=== PATIENT | male | born 1950 | race Caucasian/White ===

== ENCOUNTER 2019-06-28 13:21 | Inpatient (IN) | payer MEDICARE ==
[2019-06-28] MEDS ORDERED: SODIUM CHLORIDE 0.9% 1,000 ML IV STA ×2 (13:37)
[2019-06-28 13:50] LABS: ALT 38 U/L (4-49); AST 37 U/L (17-59); African American GFR (CKD) >90 (>60 ml/min/1.73 sqM); Albumin 4.2 g/dL (3.5-5.0); Alkaline Phosphatase 38 U/L (38-126); Anion Gap 13 mmol/L; Blood Urea Nitrogen 12 mg/dL (9-20); Calcium 9.6 mg/dL (8.4-10.2); Carbon Dioxide 22 mmol/L (22-30); Chloride 105 mmol/L (98-107); Glucose 192 mg/dL (74-99); Non-African American GFR(CKD) >90 (>60 ml/min/1.73 sqM); Potassium 3.6 mmol/L (3.5-5.1); Sodium 140 mmol/L (137-145); Total Bilirubin 1.2 mg/dL (0.2-1.3); Total Protein 7.4 g/dL (6.3-8.2)
[2019-06-28 13:53] LABS: Basophils # (A) 0.1 k/uL (0-0.2); Basophils % (A) 0 %; Eosinophils # (A) 0.1 k/uL (0-0.7); Eosinophils % (A) 0 %; HCT 43.3 % (39.0-53.0); HGB 13.5 gm/dL (13.0-17.5); Hypochromasia Slight; Lymphocytes # (A) 1.5 k/uL (1.0-4.8); Lymphocytes % (A) 13 %; MCHC 31.1 g/dL (31.0-37.0); MCV 77.2 fL (80.0-100.0); Mean Platelet Volume 8.1; Monocytes # (A) 0.4 k/uL (0-1.0); Monocytes % (A) 3 %; Neutrophils # (A) 9.3 k/uL (1.3-7.7); Neutrophils % (A) 82 %; Platelet Count 143 k/uL (150-450); Poikilocytosis Slight; RBC 5.61 m/uL (4.30-5.90); RDW 15.3 % (11.5-15.5); WBC 11.3 k/uL (3.8-10.6)
[2019-06-28] MEDS ORDERED: MECLIZINE 25 MG TAB PO PRN (13:58)
[2019-06-28 13:59] LABS: INR 1.4 (<1.2); Partial Thromboplastin Time 21.9 sec (22.0-30.0); Prothrombin Time 14.1 sec (9.0-12.0)
[2019-06-28] MEDS: MECLIZINE 12.5 MG TAB PO STA ×2 (14:03→14:04)
[2019-06-28] MEDS ORDERED: KETOROLAC 60 MG/2 ML VIAL IVP STA (14:04)
[2019-06-28] MEDS ORDERED: ONDANSETRON 4 MG/2 ML VIAL IVP STA (14:07)
[2019-06-28 14:08] LABS: Magnesium <0.4 mg/dL (1.6-2.3)
--- NOTE | 2019-06-28 14:12 | XR ---
EXAMINATION TYPE: XR chest 2V DATE OF EXAM: 06/28/2019 HISTORY: Chest Pain. REFERENCE: Previous study dated 08/18/2010. FINDINGS: There has been a previous ACDF of the lumbar cervical spine. Lungs remain clear. Pleural sp aces are clear. Heart is not enlarged. IMPRESSION: NO ACTIVE INTRATHORACIC DISEASE.
[2019-06-28] MEDS: MAGNESIUM SULFATE-D5W PMX 1 GM in DEXTROSE/WATER 1 100ML.BAG IVPB SCH ×4 (14:38→20:16)
[2019-06-28] MEDS ORDERED: METOCLOPRAMIDE 5 MG/ML 2 ML VIAL IVP STA (15:17)
--- NOTE | 2019-06-28 15:19 | ED ---
Chest Pain HPI - General Chief Complaint: Chest Pain Stated Complaint: Chest pain Time Seen by Provider: 06/28/19 13:21 Source: patient, EMS, RN notes reviewed Mode of arrival: EMS Limitations: no limitations - History of Present Illness Initial Comments: This is a 69-year-old male presents after a fall he was going to his garage when he felt lightheaded dizzy and fell he thinks he was out for a short period of time Cand[place] 20 minutes. He got up he complains some right-sided chest pain he's been dizzy since this occurred. No palpitations however no cough or shortness of breath. He is running by EMS. Of note he does have a history of Lyme disease MD Complaint: chest pain, other - Related Data Home Medications Medication Instructions Recorded Confirmed Aspirin [Adult Low Dose Aspirin EC] 81 mg PO DAILY 06/28/19 06/28/19 Cholecalciferol [Vitamin D3 (25 5,000 unit PO DAILY 06/28/19 06/28/19 Mcg = 1000 Iu)] Cyanocobalamin (Vitamin B-12) 2,500 mcg PO DAILY 06/28/19 06/28/19 [Vitamin B-12] Krill Oil 1,000 mg PO DAILY 06/28/19 06/28/19 Lisinopril [Zestril] 10 mg PO DAILY@1200 06/28/19 06/28/19 Magnesium Oxide [Garcia] 500 mg PO DAILY 06/28/19 06/28/19 Metoprolol Tartrate [Lopressor] 25 mg PO HS 06/28/19 06/28/19 Metoprolol Tartrate [Lopressor] 50 mg PO DAILY 06/28/19 06/28/19 Omeprazole/Sodium Bicarbonate 1 cap PO DAILY 06/28/19 06/28/19 [Zegerid 20 mg Capsule] Valerian Root 530mg 1,060 mg PO HS 06/28/19 06/28/19 metFORMIN HCL [metFORMIN HCL ER] 750 mg PO BID 06/28/19 06/28/19 traMADol HCL 50 mg PO QID PRN 06/28/19 06/28/19 Allergies Allergy/AdvReac Type Severity Reaction Status Date / Time No Known Allergies Allergy Verified 06/28/19 13:53 Review of Systems ROS Statement: Those systems with pertinent positive or pertinent negative responses have been documented in the HPI. ROS Other: All systems not noted in ROS Statement are negative. EKG Findings - EKG Results: EKG: interpreted by KENDRICKD, sinus rhythm (Sinus rhythm rate is 78. Interval 162 QRS 82 QT since QTC 400/456 nonspecific T-wave configuration) Past Medical History Past Medical History: Diabetes Mellitus, Hypertension, Myocardial Infarction ([place]), Osteoarthritis (OA) History of Any Multi-Drug Resistant Organisms: None Reported Past Surgical History: Orthopedic Surgery Additional Past Surgical History / Comment(s): 1 stent Past Psychological History: No Psychological Hx Reported Smoking Status: Current every day smoker Past Alcohol Use History: None Reported Past Drug Use History: None Reported General Exam - General Exam Comments Initial Comments: This is a well-developed asthenic appearing male who is awake alert oriented 3 Limitations: no limitations General appearance: alert, in no apparent distress Head exam: Present: atraumatic, normocephalic, normal inspection Eye exam: Present: normal appearance, PERRL, EOMI. Absent: scleral icterus, conjunctival injection, periorbital swelling ENT exam: Present: mucous membranes dry Neck exam: Present: normal inspection, full ROM, other. Absent: tenderness, meningismus, lymphadenopathy Respiratory exam: Present: normal lung sounds bilaterally, chest wall tenderness (No stridor JVD or bruits producible tenderness palpation along the right chest wall no step-off or crepitation however.). Absent: respiratory distress, wheezes, rales, rhonchi, stridor Cardiovascular Exam: Present: regular rate, normal rhythm, normal heart sounds. Absent: systolic murmur, diastolic murmur, rubs, gallop, clicks GI/Abdominal exam: Present: soft, normal bowel sounds. Absent: distended, tenderness, guarding, rebound, rigid Extremities exam: Present: normal inspection, full ROM, normal capillary refill. Absent: tenderness, pedal edema, joint swelling, calf tenderness Back exam: Present: normal inspection Neurological exam: Present: alert, oriented X3, CN II-XII intact Psychiatric exam: Present: normal affect, normal mood Skin exam: Present: warm, dry, intact, normal color. Absent: rash Course Vital Signs 06/28/19 06/28/19 06/28/19 13:23 13:31 14:06 Temperature 97 F L Pulse Rate 75 82 62 Respiratory 18 18 18 Rate Blood Pressure 110/70 99/83 99/79 O2 Sat by Pulse 96 97 98 Oximetry - Reevaluation(s) Reevaluation #1: 06/28/19 15:22 Patient did complain more chest pain repeat EKG was done rate was 65 178 QRS duration 88 QT since QTC 400/416 nonspecific T-wave configuration artifact was present. Reevaluation #2: 06/28/19 15:26 ALLERGIES the patient he still has recurrent chest pain still appears to be musculoskeletal he is getting IV magnesium right now for supplementation due to the presentation he will be admitted family is concerned that the patient's history of Lyme disease has something do with a events of today there are apparently family members a do not have lines the sinuses patient and her concern with the symptoms. Disposition Clinical Impression: Syncope and collapse, Chest pain, Hypomagnesemia syndrome Disposition: ADMITTED IP TO THIS [facility] Condition: Fair Referrals: Lane Gonzalez MD [Primary Care Provider] - 1-2 days
[2019-06-28] MEDS ORDERED: NALOXONE 0.4 MG/ML 1 ML VIAL IV PRN (15:27)
[2019-06-28] MEDS ORDERED: ACETAMINOPHEN TAB 325 MG TAB PO PRN (15:27)
[2019-06-28] MEDS: ONDANSETRON 4 MG/2 ML VIAL IVP PRN ×2 (16:22→23:28)
--- NOTE | 2019-06-28 17:10 | CT ---
EXAMINATION TYPE: CT angio chest DATE OF EXAM: 06/28/2019 COMPARISON: Radiograph same date HISTORY: 69-year-old male Positive D-dimer. Pt hx HTN, IA TECHNIQUE: Contiguous axial scanning of the chest performed with IV Contrast, patient injected with 1 00 mL of Isovue 370. Coronal and sagittal MIP reconstructions performed. CT DLP: 502.2 mGycm Automated exposure control for dose reduction was used. FINDINGS: Heart normal size without pericardial effusion. No flattening of the interventricular septum though t here is small amount of reflux into the hepatic veins. Three-vessel coronary artery calcifications ar e present. Ectatic upper descending thoracic aorta at 3.0 cm. Mild atherosclerotic arch calcifications with the metatarsals branching anatomy. No thoracic lymphadenopathy by CT size criteria. Satisfactory opacification of the pulmonary arterial system evidence for pulmonary embolus. Possible 7 mm right infrahilar pulmonary nodule versus subtle endobronchial lesion, or transaxial danielle ge 76 and coronal image 93. Mild diffuse bronchial wall thickening and mild centrilobular emphysema. Some prominent dependent ate lectasis is noted bilaterally. No pleural effusion. Visualized upper abdomen shows multiple segmental fusiform aneurysm infrarenal abdominal aorta measur ing up to at least 4.7 cm inferiorly and 3.2 cm along the midsegment. Retroaortic left renal vein. Nu merous bilateral renal calculi are present measuring up to 9 mm on the left and 1.1 cm on the right. Hypodense lesion, largest measuring 4.1 cm, likely cysts. Cholecystectomy clips. Bones: ACDF hardware. Multilevel moderate degenerative disc disease throughout the thoracic spine. IMPRESSION: 1. NO EVIDENCE FOR PULMONARY EMBOLUS. 2. COPD WITH MILD EMPHYSEMA. 3. CAD. 4. POSSIBLE 7 MM RIGHT INFRAHILAR PULMONARY NODULE VERSUS SUBTLE ENDOBRONCHIAL LESION. RECOMMEND PULM ONARY MEDICINE REFERRAL FOR FURTHER MANAGEMENT, POSSIBLE DIRECT VISUALIZATION. 5. 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 6. NUMEROUS BILATERAL NONOBSTRUCTIVE RENAL CALCULI MEASURING UP TO 1.1 CM.
[2019-06-28 17:45] LABS: Glucose,Whole Blood 134 mg/dL (75-99)
[2019-06-28] MEDS: metFORMIN 500 MG TAB PO SCH (18:29)
[2019-06-28] MEDS: METOPROLOL TARTRATE 25 MG TAB PO SCH (20:16)
[2019-06-28 20:32] LABS: Glucose,Whole Blood 170 mg/dL (75-99)
[2019-06-29] MEDS ORDERED: MAGNESIUM SULFATE-D5W PMX 1 GM in DEXTROSE/WATER 1 100ML.BAG IVPB SCH (00:30)
[2019-06-29] MEDS: MAGNESIUM SULFATE-D5W PMX 1 GM in DEXTROSE/WATER 1 100ML.BAG IVPB SCH ×4 (00:48→08:53)
[2019-06-29] MEDS: POTASSIUM CHLORIDE ER 20 MEQ TAB.ER PO SCH ×5 (02:17→08:54)
[2019-06-29] MEDS: PANTOPRAZOLE 40 MG TABLET PO SCH (06:16)
[2019-06-29] MEDS: metFORMIN 500 MG TAB PO SCH ×2 (06:17→17:14)
[2019-06-29 06:20] LABS: Glucose,Whole Blood 98 mg/dL (75-99)
[2019-06-29 06:25] LABS: Basophils # (A) 0.1 k/uL (0-0.2); Basophils % (A) 1 %; Eosinophils # (A) 0.2 k/uL (0-0.7); Eosinophils % (A) 2 %; HCT 36.4 % (39.0-53.0); HGB 11.1 gm/dL (13.0-17.5); Hypochromasia Slight; Lymphocytes # (A) 2.4 k/uL (1.0-4.8); Lymphocytes % (A) 24 %; MCH 23.8 pg (25.0-35.0); MCHC 30.4 g/dL (31.0-37.0); MCV 78.1 fL (80.0-100.0); Mean Platelet Volume 7.8; Monocytes # (A) 0.4 k/uL (0-1.0); Monocytes % (A) 4 %; Neutrophils # (A) 6.8 k/uL (1.3-7.7); Neutrophils % (A) 69 %; Platelet Count 107 k/uL (150-450); RBC 4.66 m/uL (4.30-5.90); RDW 15.2 % (11.5-15.5); WBC 9.8 k/uL (3.8-10.6)
[2019-06-29 06:43] LABS: African American GFR (CKD) >90 (>60 ml/min/1.73 sqM); Anion Gap 5 mmol/L; Blood Urea Nitrogen 10 mg/dL (9-20); Calcium 8.2 mg/dL (8.4-10.2); Carbon Dioxide 27 mmol/L (22-30); Chloride 109 mmol/L (98-107); Glucose 85 mg/dL (74-99); Magnesium 1.6 mg/dL (1.6-2.3); Non-African American GFR(CKD) >90 (>60 ml/min/1.73 sqM); Potassium 3.2 mmol/L (3.5-5.1); Sodium 141 mmol/L (137-145)
[2019-06-29] MEDS ORDERED: Magnesium Replacement Protocol 1 EACH MISC MISCELLANE PRN (07:29)
[2019-06-29] MEDS ORDERED: Potassium Replacement Protocol 1 EACH MISC MISCELLANE PRN (07:31)
[2019-06-29] MEDS: CYANOCOBALAMIN 500 MCG TAB PO SCH (07:47)
[2019-06-29] MEDS: ASPIRIN 81 MG PO SCH (07:48)
[2019-06-29] MEDS: METOPROLOL TARTRATE 50 MG TAB PO SCH (07:49)
[2019-06-29] MEDS: MAGNESIUM OXIDE 400 MG TAB PO SCH (07:49)
[2019-06-29] MEDS: CHOLECALCIFEROL 1,000 UNIT TAB PO SCH (07:52)
[2019-06-29] MEDS ORDERED: KRILL OIL 1000 MG PO SCH (09:00)
[2019-06-29 11:41] LABS: Glucose,Whole Blood 125 mg/dL (75-99)
[2019-06-29] MEDS: traMADol 50 MG TAB PO PRN ×2 (11:51→19:44)
[2019-06-29] MEDS: LISINOPRIL 10 MG TAB PO SCH (11:53)
[2019-06-29 12:36] LABS: Potassium 4.1 mmol/L (3.5-5.1)
[2019-06-29] MEDS: ENOXAPARIN 40 MG/0.4 ML SYRINGE SQ SCH (13:48)
--- NOTE | 2019-06-29 15:28 | CT ---
EXAMINATION TYPE: CT brain wo con DATE OF EXAM: 06/29/2019 COMPARISON: None HISTORY: syncope CT DLP: 1094.4 mGycm Automated exposure control for dose reduction was used. TECHNIQUE: CT scan of the head is performed without contrast. FINDINGS: There is no acute intracranial hemorrhage or midline shift identified. There is diffuse v entricular and sulcal prominence consistent with diffuse age-related cerebral atrophy. There is low- attenuation in the periventricular white matter consistent with chronic small vessel ischemic change. The globes are intact and the visualized sinuses are clear. IMPRESSION: No acute intracranial hemorrhage or midline shift. There is diffuse age-related cerebra l atrophy and chronic small vessel ischemic change noted.
[2019-06-29] MEDS ORDERED: MECLIZINE 12.5 MG TAB PO PRN (16:43)
--- NOTE | 2019-06-29 16:48 | P.CRDCN ---
History of Present Illness Consult date: 06/29/19 History of present illness: This is a 69-year-old gentleman with history of ischemic heart disease with previous stent placement in the setting of myocardial infarction about 70 to a single, apparently was going into his garage. Suddenly felt dizzy as if everything is spinning around and felt weak and then fell to the ground. Patient doesn't think he lost consciousness. No complaints of any chest pain or palpitations before the fall. Patient finally a was able to pick himself up and walk to versus van again patient felt dizzy and he has to lean over the van to stabilize himself. He called his friend who in turn called his . His called paramedics and came on to the scene. Patient was subsequently brought to the emergency room. He also complained of some right-sided chest discomfort but patient is vague about it. So far his EKGs and cardiac enzymes are negative. Patient is sitting in the chair and the claims that whenever he bends his neck, he gets dizzy and an spinning sensation which was similar to the episode that he had at home. It seemed to be positional vertigo. His chest pains appear to be atypical. We'll wait for the neurology consult. Computed tomography scan of the chest on and also brain were not showing any significant pathology. Once his dizziness has improved, further workup could be considered for cardiac issues. He was scheduled to have an echocardiogram which will be done here Review of Systems As per the chart Past Medical History Past Medical History: Diabetes Mellitus, Hypertension, Myocardial Infarction (MD), Osteoarthritis (OA) Last Myocardial Infarction Date:: 2011 History of Any Multi-Drug Resistant Organisms: None Reported Past Surgical History: Orthopedic Surgery Additional Past Surgical History / Comment(s): 1 stent Past Psychological History: No Psychological Hx Reported Smoking Status: Current every day smoker Past Alcohol Use History: None Reported Past Drug Use History: None Reported Medications and Allergies Home Medications Medication Instructions Recorded Confirmed Type Aspirin [Adult Low Dose Aspirin EC] 81 mg PO DAILY 06/28/19 06/28/19 History Cholecalciferol [Vitamin D3 (25 5,000 unit PO DAILY 06/28/19 06/28/19 History Mcg = 1000 Iu)] Cyanocobalamin (Vitamin B-12) 2,500 mcg PO DAILY 06/28/19 06/28/19 History [Vitamin B-12] Krill Oil 1,000 mg PO DAILY 06/28/19 06/28/19 History Lisinopril [Zestril] 10 mg PO DAILY@1200 06/28/19 06/28/19 History Magnesium Oxide [Garcia] 500 mg PO DAILY 06/28/19 06/28/19 History Metoprolol Tartrate [Lopressor] 25 mg PO HS 06/28/19 06/28/19 History Metoprolol Tartrate [Lopressor] 50 mg PO DAILY 06/28/19 06/28/19 History Omeprazole/Sodium Bicarbonate 1 cap PO DAILY 06/28/19 06/28/19 History [Zegerid 20 mg Capsule] Valerian Root 530mg 1,060 mg PO HS 06/28/19 06/28/19 History metFORMIN HCL [metFORMIN HCL ER] 750 mg PO BID 06/28/19 06/28/19 History traMADol HCL 50 mg PO QID PRN 06/28/19 06/28/19 History Allergies Allergy/AdvReac Type Severity Reaction Status Date / Time No Known Allergies Allergy Verified 06/28/19 13:53 Physical Exam Vitals: Vital Signs Temp Pulse Resp BP BP BP BP 06/29/19 16:00 17 06/29/19 11:54 98.0 F 60 17 111/61 06/29/19 09:58 100/59 96/57 105/57 06/29/19 08:00 72 16 06/29/19 07:44 98.2 F 72 16 109/66 06/29/19 03:15 98.2 F 75 18 101/60 06/29/19 00:00 74 18 114/65 06/28/19 20:00 98.5 F 77 18 107/69 Pulse Ox 06/29/19 16:00 06/29/19 11:54 96 06/29/19 09:58 06/29/19 08:00 06/29/19 07:44 95 06/29/19 03:15 95 06/29/19 00:00 96 06/28/19 20:00 95 Intake and Output 06/29/19 06/29/19 06/29/19 06:59 14:59 22:59 Intake Total 240 Output Total 300 300 Balance -300 -60 Intake: Oral 240 Output: Urine 300 300 Other: Voiding Method Toilet Toilet # Voids 1 # Bowel Movements 1 Weight 86 kg GENERAL EXAM: Patient is alert and oriented and doesn't appear to be in any acute distress HEENT: Normocephalic. Normal reaction of pupils, equal size, normal range of ex traocular motion. No erythema or exudates in the throat. NECK: No masses, no nuchal rigidity. CHEST: No chest wall deformity. LUNGS: Equal air entry with no crackles or wheeze. HEART: S1 and S2 normal with no audible mumurs or gallops. Regular rhythm, femorals equal on both sides.. ABDOMEN: No hepatosplenomegaly, normal bowel sounds, no guarding or rigidity. SKIN: No rashes CENTRAL NERVOUS SYSTEM: No focal deficits. EXTREMITIES: No cyanosis, clubbing or edema. Results 06/29/19 05:48 06/29/19 11:48 Cardiac Enzymes 06/28/19 06/29/19 Range/Units 19:40 00:59 Troponin I <0.012 0.014 (0.000-0.034) ng/mL CBC 06/29/19 Range/Units 05:48 WBC 9.8 (3.8-10.6) k/uL RBC 4.66 (4.30-5.90) m/uL Hgb 11.1 L (13.0-17.5) gm/dL Hct 36.4 L (39.0-53.0) % Plt Count 107 L (150-450) k/uL Comprehensive Metabolic Panel 06/29/19 06/29/19 06/29/19 Range/Units 00:59 05:48 11:48 Sodium 141 (137-145) mmol/L Potassium 2.8 L 3.2 L 4.1 (3.5-5.1) mmol/L Chloride 109 H (98-107) mmol/L Carbon Dioxide 27 (22-30) mmol/L BUN 10 (9-20) mg/dL Creatinine 0.74 (0.66-1.25) mg/dL Glucose 85 (74-99) mg/dL Calcium 8.2 L (8.4-10.2) mg/dL Current Medications Generic Name Dose Route Start Last Admin Trade Name Freq PRN Reason Stop Dose Admin Acetaminophen 650 mg 06/28/19 15:27 Tylenol Tab PO Q6HR PRN Mild Pain or Fever > 100.5 Aspirin 81 mg 06/29/19 09:00 06/29/19 07:48 Aspirin PO 81 mg DAILY TEE Administration Cholecalciferol 5,000 unit 06/29/19 09:00 06/29/19 07:52 Vitamin D3 (25 Mcg = 1000 Iu) PO 5,000 unit DAILY TEE Administration Cyanocobalamin 2,500 mcg 06/29/19 09:00 06/29/19 07:47 Vitamin B-12 PO 2,500 mcg DAILY TEE Administration Enoxaparin Sodium 40 mg 06/29/19 13:45 06/29/19 13:48 Lovenox SQ 40 mg DAILY TEE Administration Lisinopril 10 mg 06/29/19 12:00 06/29/19 11:53 Zestril PO 10 mg DAILY@1200 [facility] Administration Magnesium Oxide 400 mg 06/29/19 09:00 06/29/19 07:49 Mag-Ox PO 400 mg DAILY TEE Administration Meclizine HCl 12.5 mg 06/29/19 16:43 Antivert PO BID PRN Vertigo Metformin HCl 750 mg 06/28/19 17:30 06/29/19 06:17 Glucophage PO 750 mg AC-BID TEE Administration Metoprolol Tartrate 50 mg 06/29/19 09:00 06/29/19 07:49 Lopressor PO 50 mg DAILY TEE Administration Metoprolol Tartrate 25 mg 06/28/19 21:00 06/28/19 20:16 Lopressor PO 25 mg HS TEE Administration Miscellaneous Information 1 each 06/29/19 07:29 Magnesium Per Protocol MISCELLANE DAILY PRN Per Protocol Protocol Miscellaneous Information 1 each 06/29/19 07:31 Potassium Per Protocol MISCELLANE DAILY PRN Per Protocol Protocol Naloxone HCl 0.2 mg 06/28/19 15:27 Narcan IV Q2M PRN Opioid Reversal Ondansetron HCl 4 mg 06/28/19 15:27 06/28/19 23:28 Zofran IVP 4 mg Q8HR PRN Administration Nausea And Vomiting Pantoprazole Sodium 40 mg 06/29/19 07:30 06/29/19 06:16 Protonix PO 40 mg [id number] TEE Administration Tramadol HCl 50 mg 06/28/19 15:30 06/29/19 11:51 Ultram PO 50 mg QID PRN Administration Pain Intake and Output 06/29/19 06/29/19 06/29/19 06:59 14:59 22:59 Intake Total 240 Output Total 300 300 Balance -300 -60 Intake: Oral 240 Output: Urine 300 300 Other: Voiding Method Toilet Toilet # Voids 1 # Bowel Movements 1 Weight 86 kg 06/29/19 05:48 06/29/19 11:48 EKG Interpretations (text) Sinus rhythm without any acute ST-T changes Assessment and Plan (1) Vertigo Current Visit: Yes Status: Acute Code(s): R42 - DIZZINESS AND GIDDINESS SNOMED Code(s): 514155371 (2) Fall Current Visit: Yes Status: Acute Code(s): W19.XXXA - UNSPECIFIED FALL, INITIAL ENCOUNTER SNOMED Code(s): 3339166 (3) CAD (coronary artery disease) Current Visit: Yes Status: Acute Code(s): I25.10 - ATHSCL HEART DISEASE OF [place] CORONARY ARTERY W/O ANG PCTRS SNOMED Code(s): 65516971 Plan: I'll continue with Antivert. Neurology consult. We will continue to monitor his chest pains. If necessary, a nuclear stress test could be considered. Further recommendation will depend upon the clinical course
[2019-06-29 16:54] LABS: Glucose,Whole Blood 106 mg/dL (75-99)
[2019-06-29] MEDS: NICOTINE 14MG/24HR PATCH TRANSDERM SCH (18:05)
--- NOTE | 2019-06-29 19:30 | P.HPIM ---
History of Present Illness H&P Date: 06/29/19 Chief Complaint: Poor balance History of presenting complaint: This is a pleasant 69-year-old patient of Dr. Lane Fontenot. Chronic stable medical conditions include diabetes, hypertension, coronary artery disease with stent, osteoarthritis, lives disease, C5-C6 fusion. Status post March 2019 patient noted that he started having shaking episodes bilaterally. He also no tices that slowly his balance is getting affected.'s this has been progressive slowly. Yesterday patient came to the garage is going to stroke and became dizzy and fell backwards. We'll not really able to get up but did crawl up to his truck. Able to follow the bumper then get up. He never passed out. Prior to that he had felt some left-sided chest pain he thought has not really clear about the whole thing. There was no tongue biting or incontinence. Did not lose consciousness. Patient's family was bit elevated neurology consultation was not available during the weekend and they were agreeable to that before getting admitted. Review of systems: GEN.: None EYES: None HEENT: None NECK: None RESPIRATORY: None CARDIOVASCULAR: None GASTROINTESTINAL: None GENITOURINARY: None MUSCULOSKELETAL: Joint pain LYMPHATICS: None HEMATOLOGICAL: None PSYCHIATRY: None NEUROLOGICAL: Has above. Past medical history to include: Diabetes, hypertension, coronary artery with stent, osteoarthritis Social history: Smokes half a pack a day for several years. . On disability. Family history: Reviewed, noncontributory to presentation Physical examination: VITAL SIGNS: 97, 75, 18, 110/70, 96% room air GENERAL: 27.2,-BMI, sitting on the chair. Intermittent shaking movements of the arm. Given at rest. EYES: Pupils equal. Conjunctiva normal. HEENT: External appearance of nose and ears normal, oral cavity grossly normal. NECK: JVD not raised; masses not palpable. HEART: First and second heart sounds are normal; no edema. LUNGS: Respiratory rate normal; clear to auscultation. ABDOMEN: Soft, nontender, liver spleen not palpable, no masses palpable. PSYCH: Alert and oriented x3; mood and affect normal. NEUROLOGICAL: [Cranial nerves grossly intact; no facial asymmetry, intermittent jerky movements of both the BILATERAL, intermittent. Power is also decreased. LYMPHATICS: No lymph nodes palpable in the axilla and neck INVESTIGATIONS, reviewed in the clinical context: White count 7.3 hemoglobin 13.5 potassium 3.6 creatinine 0.75 Magnesium less than 0.4 Troponin I less than 0.012 EKG tracing personally reviewed by me-normal sinus rhythm with nonspecific T- wave changes Chest x-ray film personally reviewed by me-questionable chronic changes Assessment: -This is a patient with March 2019. Having jerking movements bilaterally, predominantly in the arms and also poor balance. Also weakness in the limbs. Patient does get dizzy on standing. Orthostatic was negative. He possibly dizzy with a central cause. No focal symptoms. -Diabetes mellitus type 2 -Essential hypertension -Left precordial pain for a short time in a patient with known coronary artery disease -Coronary artery disease with stent -Chronic nicotine dependence patient cigarette smoker -Primary osteoarthritis Plan: A computed tomography scan of the brain was ordered earlier this week some age- related atrophy. We'll proceed to do an MRI of the brain with and without contrast. EEG also be ordered. Has neurology services not available for the weekend we'll consult him for tomorrow morning. Other home medications are renewed. Cartilage was also consulted. Care was discussed with the patient and questions were answered. Past Medical History Past Medical History: Diabetes Mellitus, Hypertension, Myocardial Infarction ([place]), Osteoarthritis ([place]) Last Myocardial Infarction Date:: 2011 History of Any Multi-Drug Resistant Organisms: None Reported Past Surgical History: Orthopedic Surgery Additional Past Surgical History / Comment(s): 1 stent Past Psychological History: No Psychological Hx Reported Smoking Status: Current every day smoker Past Alcohol Use History: None Reported Past Drug Use History: None Reported Medications and Allergies Home Medications Medication Instructions Recorded Confirmed Type Aspirin [Adult Low Dose Aspirin EC] 81 mg PO DAILY 06/28/19 06/28/19 History Cholecalciferol [Vitamin D3 (25 5,000 unit PO DAILY 06/28/19 06/28/19 History Mcg = 1000 Iu)] Cyanocobalamin (Vitamin B-12) 2,500 mcg PO DAILY 06/28/19 06/28/19 History [Vitamin B-12] Krill Oil 1,000 mg PO DAILY 06/28/19 06/28/19 History Lisinopril [Zestril] 10 mg PO DAILY@1200 06/28/19 06/28/19 History Magnesium Oxide [Garcia] 500 mg PO DAILY 06/28/19 06/28/19 History Metoprolol Tartrate [Lopressor] 25 mg PO HS 06/28/19 06/28/19 History Metoprolol Tartrate [Lopressor] 50 mg PO DAILY 06/28/19 06/28/19 History Omeprazole/Sodium Bicarbonate 1 cap PO DAILY 06/28/19 06/28/19 History [Zegerid 20 mg Capsule] Valerian Root 530mg 1,060 mg PO HS 06/28/19 06/28/19 History metFORMIN HCL [metFORMIN HCL ER] 750 mg PO BID 06/28/19 06/28/19 History traMADol HCL 50 mg PO QID PRN 06/28/19 06/28/19 History Allergies Allergy/AdvReac Type Severity Reaction Status Date / Time No Known Allergies Allergy Verified 06/28/19 13:53 Physical Exam Vitals: Vital Signs Temp Pulse Pulse Resp BP BP BP 06/29/19 11:54 98.0 F 60 17 111/61 06/29/19 09:58 100/59 96/57 06/29/19 08:00 72 16 06/29/19 07:44 98.2 F 72 16 06/29/19 03:15 98.2 F 75 18 06/29/19 00:00 74 18 06/28/19 20:00 98.5 F 77 18 06/28/19 16:31 97 F L 56 L 18 130/70 06/28/19 16:02 56 L 18 130/70 06/28/19 16:00 98.8 F 82 18 06/28/19 14:06 62 18 99/79 BP BP Pulse Ox 06/29/19 11:54 96 06/29/19 09:58 105/57 06/29/19 08:00 06/29/19 07:44 109/66 95 06/29/19 03:15 101/60 95 06/29/19 00:00 114/65 96 06/28/19 20:00 107/69 95 06/28/19 16:31 94 L 06/28/19 16:02 94 L 06/28/19 16:00 136/81 96 06/28/19 14:06 98 Intake and Output 06/28/19 06/29/19 06/29/19 22:59 06:59 14:59 Intake Total 240 Output Total 150 300 300 Balance -150 -300 -60 Intake: Oral 240 Output: Urine 150 300 300 Other: Voiding Method Toilet # Voids 1 # Bowel Movements 1 Weight 83.915 kg 86 kg Results CBC & Chem 7: 06/29/19 05:48 06/29/19 11:48 Labs: Abnormal Lab Results - Last 24 Hours (Table) 06/28/19 06/28/19 06/28/19 Range/Units 13:23 13:23 13:23 WBC 11.3 H (3.8-10.6) k/uL Hgb (13.0-17.5) gm/dL Hct (39.0-53.0) % MCV 77.2 L (80.0-100.0) fL MCH 24.0 L (25.0-35.0) pg MCHC (31.0-37.0) g/dL Plt Count 143 L (150-450) k/uL Neutrophils # 9.3 H (1.3-7.7) k/uL PT 14.1 H (9.0-12.0) sec INR 1.4 H (<1.2) APTT 21.9 L (22.0-30.0) sec D-Dimer (<0.60) mg/L FEU Potassium (3.5-5.1) mmol/L Chloride (98-107) mmol/L Glucose 192 H (74-99) mg/dL POC Glucose (mg/dL) (75-99) mg/dL Calcium (8.4-10.2) mg/dL Magnesium <0.4 L* (1.6-2.3) mg/dL 06/28/19 06/28/19 06/28/19 Range/Units 13:33 17:37 20:31 WBC (3.8-10.6) k/uL Hgb (13.0-17.5) gm/dL Hct (39.0-53.0) % MCV (80.0-100.0) fL MCH (25.0-35.0) pg MCHC (31.0-37.0) g/dL Plt Count (150-450) k/uL Neutrophils # (1.3-7.7) k/uL PT (9.0-12.0) sec INR (<1.2) APTT (22.0-30.0) sec D-Dimer 2.32 H (<0.60) mg/L FEU Potassium (3.5-5.1) mmol/L Chloride (98-107) mmol/L Glucose (74-99) mg/dL POC Glucose (mg/dL) 134 H 170 H (75-99) mg/dL Calcium (8.4-10.2) mg/dL Magnesium (1.6-2.3) mg/dL 06/28/19 06/29/19 06/29/19 Range/Units 22:20 00:59 05:48 WBC (3.8-10.6) k/uL Hgb 11.1 L (13.0-17.5) gm/dL Hct 36.4 L (39.0-53.0) % MCV 78.1 L (80.0-100.0) fL MCH 23.8 L (25.0-35.0) pg MCHC 30.4 L (31.0-37.0) g/dL Plt Count 107 L (150-450) k/uL Neutrophils # (1.3-7.7) k/uL PT (9.0-12.0) sec INR (<1.2) APTT (22.0-30.0) sec D-Dimer (<0.60) mg/L FEU Potassium 2.8 L (3.5-5.1) mmol/L Chloride (98-107) mmol/L Glucose (74-99) mg/dL POC Glucose (mg/dL) (75-99) mg/dL Calcium (8.4-10.2) mg/dL Magnesium 1.4 L (1.6-2.3) mg/dL 06/29/19 06/29/19 Range/Units 05:48 11:35 WBC (3.8-10.6) k/uL Hgb (13.0-17.5) gm/dL Hct (39.0-53.0) % MCV (80.0-100.0) fL MCH (25.0-35.0) pg MCHC (31.0-37.0) g/dL Plt Count (150-450) k/uL Neutrophils # (1.3-7.7) k/uL PT (9.0-12.0) sec INR (<1.2) APTT (22.0-30.0) sec D-Dimer (<0.60) mg/L FEU Potassium 3.2 L (3.5-5.1) mmol/L Chloride 109 H (98-107) mmol/L Glucose (74-99) mg/dL POC Glucose (mg/dL) 125 H (75-99) mg/dL Calcium 8.2 L (8.4-10.2) mg/dL Magnesium (1.6-2.3) mg/dL
[2019-06-29] MEDS: METOPROLOL TARTRATE 25 MG TAB PO SCH (19:45)
[2019-06-29 19:56] LABS: Glucose,Whole Blood 133 mg/dL (75-99)
[2019-06-30 06:01] LABS: Glucose,Whole Blood 111 mg/dL (75-99)
[2019-06-30] MEDS: metFORMIN 500 MG TAB PO SCH ×2 (06:14→17:12)
[2019-06-30] MEDS: ENOXAPARIN 40 MG/0.4 ML SYRINGE SQ SCH (08:13)
[2019-06-30] MEDS: CHOLECALCIFEROL 1,000 UNIT TAB PO SCH (08:13)
[2019-06-30] MEDS: METOPROLOL TARTRATE 50 MG TAB PO SCH (08:14)
[2019-06-30] MEDS: ASPIRIN 81 MG PO SCH (08:14)
[2019-06-30] MEDS: CYANOCOBALAMIN 500 MCG TAB PO SCH (08:14)
[2019-06-30] MEDS: MAGNESIUM OXIDE 400 MG TAB PO SCH (08:14)
[2019-06-30] MEDS: NICOTINE 14MG/24HR PATCH TRANSDERM SCH (08:14)
--- NOTE | 2019-06-30 10:24 | P.PN ---
Subjective Progress Note Date: 06/30/19 This is a 69-year-old gentleman with history of ischemic heart disease with previous stent placement in the setting of myocardial infarction, apparently was going into his garage. Suddenly felt dizzy as if everything is spinning around and felt weak and then fell to the ground. Patient doesn't think he lost consciousness. No complaints of any chest pain or palpitations before the fall. Patient finally a was able to pick himself up and walk to versus van again patient felt dizzy and he has to lean over the van to stabilize himself. He called his friend who in turn called his . His called paramedics and came on to the scene. Patient was subsequently brought to the emergency room. He also complained of some right-sided chest discomfort but patient is vague about it. So far his EKGs and cardiac enzymes are negative. Patient is sitting in the chair and the claims that whenever he bends his neck, he gets dizzy and an spinning sensation which was similar to the episode that he had at home. It seemed to be positional vertigo. His chest pains appear to be atypical. His d-dimer had come back at 2.3, subsequent CTA of the chest did not reveal any evidence of pulmonary embolism, it did show a possible 7 mm right infrahilar pulmonary nodule versus subtle endobronchial lesion. 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 Troponins 0.012, 0.012, 0.014. An echocardiogram with Doppler study was performed which is yet pending. Orthostatics were also obtained which came back to be negative. No significant arrhythmias on the monitor noted. Patient was initiated on Antivert, however it was only a when necessary order, we will make that a daily dose. At the time of my examination this morning, the patient was sitting up at his bedside, he still states that he felt like the room was spinning, he denied any chest discomfort. Patient does have an upcoming appointment scheduled in the office with Dr. Debo Ray. We will review his echo this admission, from our perspective he may be able to be discharged home, we will schedule an outpatient stress test and have him follow-up with Dr. Debo Ray as scheduled. Objective - Vital Signs Vital signs: Vital Signs Temp 97.5 F L 06/30/19 04:00 Pulse 65 06/30/19 04:00 Resp 18 06/30/19 04:00 BP 125/68 06/30/19 04:00 Pulse Ox 95 06/30/19 04:00 Intake & Output 06/29/19 06/30/19 06/30/19 18:59 06:59 18:59 Intake Total 480 180 Output Total 300 Balance 180 180 Weight 85.6 kg Intake: Oral 480 180 Output: Urine 300 Other: Voiding Method Toilet Toilet # Voids 1 # Bowel Movements 1 - Exam GENERAL EXAM: Patient is alert and oriented and doesn't appear to be in any acute distress HEENT: Normocephalic. Normal reaction of pupils, equal size, normal range of extraocular motion. No erythema or exudates in the throat. NECK: No masses, no nuchal rigidity. CHEST: No chest wall deformity. LUNGS: Equal air entry with no crackles or wheeze. HEART: S1 and S2 normal with no audible mumurs or gallops. Regular rhythm, femorals equal on both sides.. ABDOMEN: No hepatosplenomegaly, normal bowel sounds, no guarding or rigidity. SKIN: No rashes CENTRAL NERVOUS SYSTEM: No focal deficits. EXTREMITIES: No cyanosis, clubbing or edema. - Labs CBC & Chem 7: 06/29/19 05:48 06/29/19 11:48 Labs: Abnormal Lab Results - Last 24 Hours (Table) 06/29/19 06/29/19 06/29/19 Range/Units 11:35 16:53 19:55 POC Glucose (mg/dL) 125 H 106 H 133 H (75-99) mg/dL 06/30/19 Range/Units 06:00 POC Glucose (mg/dL) 111 H (75-99) mg/dL Assessment and Plan Plan: Assessment and plan #1 near syncope, likely secondary to vertigo. Orthostatics were negative. No arrhythmias have been noted on the monitor. #2 atypical chest pain #3 history of coronary artery disease with prior stent placement #4 hypertension #5 hyperlipidemia #6 osteoarthritis Plan The patient's Antivert will be made regular scheduled twice a day dose. From cardiology's perspective, we will schedule patient for an outpatient stress test, patient is also been instructed to keep his follow-up appointment with Dr. Debo Ray in the office. DNP note has been reviewed, I agree with a documented findings and plan of care. Patient was seen and examined.
[2019-06-30] MEDS: LISINOPRIL 10 MG TAB PO SCH (11:16)
[2019-06-30] MEDS: MECLIZINE 12.5 MG TAB PO SCH (11:21)
[2019-06-30 11:46] LABS: Glucose,Whole Blood 141 mg/dL (75-99)
[2019-06-30] MEDS ORDERED: LORazepam 2 MG/ML INJ IV STA (14:11)
[2019-06-30 16:55] LABS: Glucose,Whole Blood 195 mg/dL (75-99)
--- NOTE | 2019-06-30 17:57 | P.PN ---
Progress Note - Text Progress Note Date: 06/30/19 Chief Complaint: Poor balance History of presenting complaint: This is a pleasant 69-year-old patient of Dr. Lane Fontenot. Chronic stable medical conditions include diabetes, hypertension, coronary artery disease with stent, osteoarthritis, Lyme's disease, C5-C6 fusion. Around March 2019 patient noted that he started having shaking episodes bilaterally. He also notices that slowly his balance is getting affected.'s this has been progressive slowly. Yesterday patient came to the garage is going to his truck and became dizzy and fell backwards. He was not really able to get up but did crawl up to his truck. Able to get to the the bumper then get up. He never passed out. Prior to that he had felt some left-sided chest pain he thought has not really clear about the whole thing. There was no tongue biting or incontinence. Did not lose consciousness. Patient's family was informed neurology consultation was not available during the weekend and they were agreeable to that before getting admitted. Hospital course: Computed tomography scan of the brain was negative. Cardiology a consultation was done. Today-sitting up in a chair. No new issues. Pending MRI of the brain. Shaking episodes of the limbs continue. Review of systems: Was done for constitutional, cardiovascular, GI, pulmonary. Neurology relevant finding as above Active Medications Acetaminophen (Tylenol Tab) 650 mg PO Q6HR PRN PRN Reason: Mild Pain or Fever > 100.5 Last Admin: 06/30/19 02:29 Dose: 650 mg Documented by: Aspirin (Aspirin) 81 mg PO DAILY [facility] Last Admin: 06/30/19 08:14 Dose: 81 mg Documented by: Cholecalciferol (Vitamin D3 (25 Mcg = 1000 Iu)) 5,000 unit PO DAILY [facility] Last Admin: 06/30/19 08:13 Dose: 5,000 unit Documented by: Cyanocobalamin (Vitamin B-12) 2,500 mcg PO DAILY [facility] Last Admin: 06/30/19 08:14 Dose: 2,500 mcg Documented by: Enoxaparin Sodium (Lovenox) 40 mg SQ DAILY [facility] Last Admin: 06/30/19 08:13 Dose: 40 mg Documented by: Lisinopril (Zestril) 10 mg PO DAILY@1200 [facility] Last Admin: 06/30/19 11:16 Dose: 10 mg Documented by: Magnesium Oxide (Mag-Ox) 400 mg PO DAILY [facility] Last Admin: 06/30/19 08:14 Dose: 400 mg Documented by: Meclizine HCl (Antivert) 12.5 mg PO BID [facility] Last Admin: 06/30/19 11:21 Dose: 12.5 mg Documented by: Metformin HCl (Glucophage) 750 mg PO AC-BID [facility] Last Admin: 06/30/19 17:12 Dose: 750 mg Documented by: Metoprolol Tartrate (Lopressor) 50 mg PO DAILY [facility] Last Admin: 06/30/19 08:14 Dose: 50 mg Documented by: Metoprolol Tartrate (Lopressor) 25 mg PO HS [facility] Last Admin: 06/29/19 19:45 Dose: 25 mg Documented by: Miscellaneous Information (Magnesium Per Protocol) 1 each MISCELLANE DAILY PRN; Protocol PRN Reason: Per Protocol Miscellaneous Information (Potassium Per Protocol) 1 each MISCELLANE DAILY PRN; Protocol PRN Reason: Per Protocol Naloxone HCl (Narcan) 0.2 mg IV Q2M PRN PRN Reason: Opioid Reversal Nicotine (Habitrol 14mg/24hr Patch) 1 patch TRANSDERM DAILY [facility] Last Admin: 06/30/19 08:14 Dose: 1 patch Documented by: Ondansetron HCl (Zofran) 4 mg IVP Q8HR PRN PRN Reason: Nausea And Vomiting Last Admin: 06/28/19 23:28 Dose: 4 mg Documented by: Pantoprazole Sodium (Protonix) 40 mg PO AC-BRKFST [facility] Last Admin: 06/29/19 06:16 Dose: 40 mg Documented by: Tramadol HCl (Ultram) 50 mg PO QID PRN PRN Reason: Pain Last Admin: 06/29/19 19:44 Dose: 50 mg Documented by: Physical examination: VITAL SIGNS: 98.1, 72, 16, 139/73, 96% on room air GENERAL: I, sitting on the chair. Intermittent shaking movements of the arm. . EYES: Pupils equal. Conjunctiva normal. HEENT: External appearance of nose and ears normal, oral cavity grossly normal. NECK: JVD not raised; masses not palpable. HEART: First and second heart sounds are normal; no edema. LUNGS: Respiratory rate normal; clear to auscultation. ABDOMEN: Soft, nontender, liver spleen not palpable, no masses palpable. PSYCH: Alert and oriented x3; mood and affect normal. NEUROLOGICAL: [Cranial nerves grossly intact; no facial asymmetry, intermittent jerky movements of both the BILATERAL, intermittent. Power is also decreased. INVESTIGATIONS, reviewed in the clinical context: White count 7.3 hemoglobin 13.5 potassium 3.6 creatinine 0.75 Magnesium less than 0.4 Troponin I less than 0.012 EKG tracing personally reviewed by me-normal sinus rhythm with nonspecific T- wave changes Chest x-ray film personally reviewed by me-questionable chronic changes Computed tomography scan brain-diffuse age-related atrophy Assessment: -This is a patient with March 2019. Having jerking movements bilaterally, predominantly in the arms and also poor balance. Also weakness in the limbs. Patient does get dizzy on standing. Orthostatic was negative. He possibly dizzy with a central cause. No focal symptoms. Also need to rule out cervical spine/cord etiology -Diabetes mellitus type 2 -Essential hypertension -Left precordial pain for a short time in a patient with known coronary artery disease, outpatient stress test per cardiology -Coronary artery disease with stent -Chronic nicotine dependence patient cigarette smoker -Primary osteoarthritis Plan: Patient is pending MRI of the brain and the cervical spine. Requesting some sedative before the same which has been prescribed. Other medication treatment plan is to continue.
--- NOTE | 2019-06-30 18:06 | EEG ---
ELECTROENCEPHALOGRAM REPORT PROCEDURE DATE: 06/30/2019. ELECTROENCEPHALOGRAM (EEG) REPORT: TECHNIQUE: A routine 18 channel EEG was performed with video using the 10/20 electrode placement system. HISTORY: Syncope. CURRENT MEDICATIONS: Zofran, Ultram, Protonix, potassium chloride, metformin, Antivert. STUDY DURATION: 24 minutes. FINDINGS: Overall, this recording was of low amplitude and interpretation was performed at 5 microvolt sensitivity. A mild excess of beta frequency activity was noted. This is not epileptiform in nature and may in part be due to medication effect. BACKGROUND: The background activity consisted of 8-9 hertz rhythmic waveforms symmetrically distributed over both posterior quadrants. ACTIVATION: Hyperventilation: Not performed. Photic stimulation: Symmetric driving seen. Sleep: Stages I and II sleep noted. ABNORMALITIES: None. Please note that 1 channel of this EEG was dedicated to EKG, it demonstrated a sinus rhythm. IMPRESSION: Normal EEG. No epileptiform activity was present. No seizures were recorded. MMODL / IJN: [id number] / MTDD
--- NOTE | 2019-06-30 19:08 | MR ---
EXAMINATION TYPE: MR cervical spine wo con DATE OF EXAM: 06/30/2019 COMPARISON: None HISTORY: Bilat abnormal shaking movements, altered balance , Neck pain Multiplanar multiecho imaging of the cervical spine was performed without contrast. Vertebra have normal alignment. There is metal artifact from anterior fusion surgery at C5-6. There i s mild disc space narrowing at C6-7 C7-T1. There is posterior disc bulging and small herniation at le vels from C2 to C5. There is developmentally adequate spinal canal. There is no spinal stenosis. Cerv ical spinal cord has normal signal pattern. There is no edema. Brainstem is intact. The posterior tevin ments are intact. There is no sign of paraspinal mass. There is mild thickening of the transverse ligament without impingement on the brainstem. IMPRESSION: Anterior fusion surgery. No spinal stenosis. Small posterior disc herniations in the upper cervical s pine wo spinal stenosis. Also small posterior disc bulge at C6-7 without stenosis. No fracture.
--- NOTE | 2019-06-30 19:14 | MR ---
EXAMINATION TYPE: MR brain wo/w con DATE OF EXAM: 06/30/2019 COMPARISON: None HISTORY: Bilat abnormal shaking movements, altered balance CONTRAST: Standard multiplanar, multisequence MRI departmental protocol utilizing 7.5 mL intravenous Gadavist g adolinium contrast. There is mild cerebral cortical atrophy. There is no mass effect nor midline shift. There is no sign of intracranial hemorrhage. There is 1.5 cm area of mild patchy increased signal in the posterior asp ect of the mahesh. There is patchy increased signal in the subependymal periventricular white matter on the T2 and FLAIR images. There are foci that measure up to 11 mm adjacent to the lateral ventricles. Total number of lesions is approximately 25. The cerebellum is intact. There is no evidence of cereb ral cortical infarct. Contrast images show normal opacification of the venous sinuses. There is arterial flow in the anteri or middle and posterior cerebral arteries. There is no pathologic enhancement. Sella turcica appears normal. Corpus callosum is intact. IMPRESSION: White matter changes consistent with chronic small vessel ischemia or demyelinating disease. No evide nce of cortical infarct.
[2019-06-30] MEDS: METOPROLOL TARTRATE 25 MG TAB PO SCH (19:38)
[2019-06-30 20:38] LABS: Glucose,Whole Blood 114 mg/dL (75-99)
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
[2019-07-01 03:41] LABS: T4, Free (Free Thyroxine) 1.32 ng/dL (0.78-2.19)
[2019-07-01 05:37] LABS: Glucose,Whole Blood 114 mg/dL (75-99)
[2019-07-01] MEDS: PANTOPRAZOLE 40 MG TABLET PO SCH (06:13)
[2019-07-01] MEDS: metFORMIN 500 MG TAB PO SCH (06:13)
[2019-07-01 08:01] VITALS: TEMP 98
[2019-07-01] MEDS: ASPIRIN 81 MG PO SCH (09:17)
[2019-07-01] MEDS: CYANOCOBALAMIN 500 MCG TAB PO SCH (09:18)
[2019-07-01] MEDS: CHOLECALCIFEROL 1,000 UNIT TAB PO SCH (09:18)
[2019-07-01] MEDS: MAGNESIUM OXIDE 400 MG TAB PO SCH (09:19)
[2019-07-01] MEDS: METOPROLOL TARTRATE 50 MG TAB PO SCH (09:19)
[2019-07-01] MEDS: MECLIZINE 12.5 MG TAB PO SCH (09:19)
[2019-07-01] MEDS: ENOXAPARIN 40 MG/0.4 ML SYRINGE SQ SCH (09:22)
[2019-07-01] MEDS: NICOTINE 14MG/24HR PATCH TRANSDERM SCH (09:22)
[2019-07-01] MEDS: LISINOPRIL 10 MG TAB PO SCH (11:53)
[2019-07-01 12:00] LABS: Glucose,Whole Blood 140 mg/dL (75-99)
[2019-07-01 12:02] VITALS: BP 141/83; PULSE 61; RESP 16
--- NOTE | 2019-07-01 13:24 | P.PN ---
Subjective Progress Note Date: 07/01/19 This is a 69-year-old gentleman with history of ischemic heart disease with previous stent placement in the setting of myocardial infarction, apparently was going into his garage. Suddenly felt dizzy as if everything is spinning around and felt weak and then fell to the ground. Patient doesn't think he lost consciousness. No complaints of any chest pain or palpitations before the fall. Patient finally a was able to pick himself up and walk to versus van again patient felt dizzy and he has to lean over the van to stabilize himself. He called his friend who in turn called his . His called paramedics and came on to the scene. Patient was subsequently brought to the emergency room. He also complained of some right-sided chest discomfort but patient is vague about it. So far his EKGs and cardiac enzymes are negative. Patient is sitting in the chair and the claims that whenever he bends his neck, he gets dizzy and an spinning sensation which was similar to the episode that he had at home. It seemed to be positional vertigo. His chest pains appear to be atypical. His d-dimer had come back at 2.3, subsequent CTA of the chest did not reveal any evidence of pulmonary embolism, it did show a possible 7 mm right infrahilar pulmonary nodule versus subtle endobronchial lesion. 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 Troponins 0.012, 0.012, 0.014. An echocardiogram with Doppler study was performed which is yet pending. Orthostatics were also obtained which came back to be negative. No significant arrhythmias on the monitor noted. Patient was initiated on Antivert, however it was only a when necessary order, we will make that a daily dose. At the time of my examination this morning, the patient was sitting up at his bedside, he still states that he felt like the room was spinning, he denied any chest discomfort. Patient does have an upcoming appointment scheduled in the office with Dr. Debo Ray. We will review his echo this admission, from our perspective he may be able to be discharged home, we will schedule an outpatient stress test and have him follow-up with Dr. Debo Ray as scheduled. 07/01/2019 Patient was seen and examined this morning, he states that he does feel less dizzy when moving his head quickly, still has some mild dizziness with rapid head movement. He has been noted on the monitor to have frequent PVCs, he also has episodes of what appears to be blocked APCs. For this reason we would recommend on discharge that the patient have a 30 day event monitor placed. Blood pressure 140/80 with a heart rate in the 60s, 97% on room air. Objective - Vital Signs Vital signs: Vital Signs Temp 98.0 F 07/01/19 12:00 Pulse 61 07/01/19 12:00 Resp 16 07/01/19 12:00 BP 141/83 07/01/19 12:00 Pulse Ox 97 07/01/19 12:00 Intake & Output 06/30/19 07/01/19 07/01/19 18:59 06:59 18:59 Intake Total 780 120 740 Output Total 650 Balance 130 120 740 Weight 85.6 kg Intake: Oral 780 120 740 Output: Urine 650 Other: Voiding Method Toilet Toilet Toilet # Voids 1 2 1 # Bowel Movements 1 - Exam GENERAL EXAM: Patient is alert and oriented and doesn't appear to be in any acute distress HEENT: Normocephalic. Normal reaction of pupils, equal size, normal range of extraocular motion. No erythema or exudates in the throat. NECK: No masses, no nuchal rigidity. CHEST: No chest wall deformity. LUNGS: Equal air entry with no crackles or wheeze. HEART: S1 and S2 normal with no audible mumurs or gallops. Regular rhythm, femorals equal on both sides.. ABDOMEN: No hepatosplenomegaly, normal bowel sounds, no guarding or rigidity. SKIN: No rashes CENTRAL NERVOUS SYSTEM: No focal deficits. EXTREMITIES: No cyanosis, clubbing or edema. - Labs CBC & Chem 7: 06/29/19 05:48 06/29/19 11:48 Labs: Abnormal Lab Results - Last 24 Hours (Table) 06/29/19 06/30/19 06/30/19 Range/Units 11:48 16:53 20:36 POC Glucose (mg/dL) 195 H 114 H (75-99) mg/dL HDL Cholesterol 25 L (40-60) mg/dL TSH 0.308 L (0.465-4.680) mIU/L 07/01/19 07/01/19 Range/Units 05:36 11:51 POC Glucose (mg/dL) 114 H 140 H (75-99) mg/dL HDL Cholesterol (40-60) mg/dL TSH (0.465-4.680) mIU/L Assessment and Plan Plan: Assessment and plan #1 near syncope, likely secondary to vertigo. Orthostatics were negative. No arrhythmias have been noted on the monitor. #2 atypical chest pain #3 history of coronary artery disease with prior stent placement #4 hypertension #5 hyperlipidemia #6 osteoarthritis #7 frequent PVCs with evidence of blocked APCs on the monitor. Plan From cardiology's perspective, patient may be able to be discharged today. We will recommend a 30 day event monitor on discharge, follow-up appointment with Dr. MELINDA Ray in the office. DNP note has been reviewed, I agree with a documented findings and plan of care. Patient was seen and examined.
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
--- NOTE | 2019-07-02 00:11 | P.DS ---
Providers Date of admission: 06/28/19 15:28 Expected date of discharge: 07/01/19 Attending physician: Carlos Shaw Consults: 06/28/19 15:28 Consult Physician Routine Consulting Provider: Francia Hoffman Consult Reason/Comments: Syncope, chest pain, hypomagnesemia Do you want consulting provider notified?: Yes 06/29/19 18:56 Consult Physician Routine Consulting Provider: Varsha Bright Consult Reason/Comments: Abnormal movements, poor balance Do you want consulting provider notified?: Yes, Notify in am Primary care physician: [facility] Course: Chief Complaint: Poor balance History of presenting complaint: This is a pleasant 69-year-old patient of Dr. Lane Fontenot. Chronic stable medical conditions include diabetes, hypertension, coronary artery disease with stent, osteoarthritis, Lyme's disease, C5-C6 fusion. Around March 2019 patient noted that he started having shaking episodes bilaterally. He also notices that slowly his balance is getting affected.'s this has been progressive slowly. Yesterday patient came to the garage is going to his truck and became dizzy and fell backwards. He was not really able to get up but did crawl up to his truck. Able to get to the the bumper then get up. He never passed out. Prior to that he had felt some left-sided chest pain he thought has not really clear about the whole thing. There was no tongue biting or incontinence. Did not lose consciousness. Patient's family was informed neurology consultation was not available during the weekend and they were agreeable to that before getting admitted. Hospital course: Computed tomography scan of the brain was negative. Cardiology a consultation was done. EEG, cervical spine MRI, brain MRI showed no specific findings. Seen by neurology. Cleared for discharge. Patient will need some further workup as an outpatient. Follow with Dr. Sosa neurology. Also seen by cardiology. Had a slight pause on telemetry. Patient be discharged home by event monitor. Care was discussed with the patient and . Questions were answered. Discussion and discharge planning more than 35 minutes Consultations: Dr. Obdulia Landa from cardiology Dr. Bright from neurology Physical examination: VITAL SIGNS: 98, 61, 16, 141/83, 97% on room air GENERAL: sitting on the chair. Less Intermittent shaking movements of the arm. . EYES: Pupils equal. Conjunctiva normal. HEENT: External appearance of nose and ears normal, oral cavity grossly normal. NECK: JVD not raised; masses not palpable. HEART: First and second heart sounds are normal; no edema. LUNGS: Respiratory rate normal; clear to auscultation. ABDOMEN: Soft, nontender, liver spleen not palpable, no masses palpable. PSYCH: Alert and oriented x3; mood and affect normal. NEUROLOGICAL: [Cranial nerves grossly intact; no facial asymmetry, intermittent jerky movements of both the BILATERAL, intermittent. Power is also decreased. INVESTIGATIONS, reviewed in the clinical context: White count 7.3 hemoglobin 13.5 potassium 3.6 creatinine 0.75 Magnesium less than 0.4 Troponin I less than 0.012 EKG tracing personally reviewed by me-normal sinus rhythm with nonspecific T- wave changes Chest x-ray film personally reviewed by me-questionable chronic changes Computed tomography scan brain-diffuse age-related atrophy MRI brain-nonspecific white matter changes Cervical spine MRI-nonspecific findings EEG-normal Assessment: -Undefined bilateral jerking movement disorder. Cause not known. -Diabetes mellitus type 2 -Essential hypertension -Left precordial pain for a short time in a patient with known coronary artery disease, outpatient stress test per cardiology -Coronary artery disease with stent -Chronic nicotine dependence patient cigarette smoker -Primary osteoarthritis -Being discharged on event monitor Disposition: Home Patient Condition at Discharge: Stable Plan - Discharge Summary New Discharge Prescriptions: New Meclizine [Antivert] 12.5 mg PO BID #30 tab Nicotine 14Mg/24Hr Patch [Habitrol] 1 patch TRANSDERM DAILY #14 patch Continue metFORMIN HCL [metFORMIN HCL ER] 750 mg PO BID Omeprazole/Sodium Bicarbonate [Zegerid 20 mg Capsule] 1 cap PO DAILY Cyanocobalamin (Vitamin B-12) [Vitamin B-12] 2,500 mcg PO DAILY Magnesium Oxide [Garcia] 500 mg PO DAILY Aspirin [Adult Low Dose Aspirin EC] 81 mg PO DAILY traMADol HCL 50 mg PO QID PRN PRN Reason: Pain Cholecalciferol [Vitamin D3 (25 Mcg = 1000 Iu)] 5,000 unit PO DAILY Lisinopril [Zestril] 10 mg PO DAILY@1200 Changed Metoprolol Tartrate [Lopressor] 25 mg PO TID #0 Discontinued Metoprolol Tartrate [Lopressor] 25 mg PO HS No Action Valerian Root 530mg 1,060 mg PO HS Krill Oil 1,000 mg PO DAILY Discharge Medication List Aspirin [Adult Low Dose Aspirin EC] 81 mg PO DAILY 06/28/19 [History] Cholecalciferol [Vitamin D3 (25 Mcg = 1000 Iu)] 5,000 unit PO DAILY 06/28/19 [History] Cyanocobalamin (Vitamin B-12) [Vitamin B-12] 2,500 mcg PO DAILY 06/28/19 [History] Krill Oil 1,000 mg PO DAILY 06/28/19 [History] Lisinopril [Zestril] 10 mg PO DAILY@1200 06/28/19 [History] Magnesium Oxide [Garcia] 500 mg PO DAILY 06/28/19 [History] Omeprazole/Sodium Bicarbonate [Zegerid 20 mg Capsule] 1 cap PO DAILY 06/28/19 [History] Valerian Root 530mg 1,060 mg PO HS 06/28/19 [History] metFORMIN HCL [metFORMIN HCL ER] 750 mg PO BID 06/28/19 [History] traMADol HCL 50 mg PO QID PRN 06/28/19 [History] Meclizine [Antivert] 12.5 mg PO BID #30 tab 07/01/19 [Rx] Metoprolol Tartrate [Lopressor] 25 mg PO TID #0 07/01/19 [Rx] Nicotine 14Mg/24Hr Patch [Habitrol] 1 patch TRANSDERM DAILY #14 patch 07/01/19 [Rx] Follow up Appointment(s)/Referral(s): Bita Ray MD [STAFF PHYSICIAN] - 07/15/19 2:45 pm (Sunday) Shahid Sosa MD [STAFF PHYSICIAN] - 1 Week (Primary care to send referral per zoology technical officer.) Lane Gonzalez MD [Primary Care Provider] - 07/08/19 10:00 am (Sunday) Patient Instructions/Handouts: Hypokalemia (DC), Syncope (DC), Hypomagnesemia (DC) Activity/Diet/Wound Care/Special Instructions: 30 day event monitor placed on patient at bedside. Discharge Disposition: HOME SELF-CARE
== END 2019-07-01 15:33 | disposition home or self-care (01) | DRG 57 ==
LOC: EC 13:21 → 3SCARD 15:28
PROVIDERS: ADMIT Hospitalist; ATTEND Hospitalist
DX: G25.9 Extrapyramidal and movement disorder, unspecified (principal); A69.20 Lyme disease, unspecified; E11.9 Type 2 diabetes mellitus without complications; E78.5 Hyperlipidemia, unspecified; E83.42 Hypomagnesemia; F17.210 Nicotine dependence, cigarettes, uncomplicated; F98.5 Adult onset fluency disorder; I10 Essential (primary) hypertension; I25.10 Atherosclerotic heart disease of native coronary artery without angina pectoris; I25.2 Old myocardial infarction; I49.3 Ventricular premature depolarization; M19.91 Primary osteoarthritis, unspecified site; W19.XXXA Unspecified fall, initial encounter; Z79.82 Long term (current) use of aspirin; Z79.84 Long term (current) use of oral hypoglycemic drugs; Z79.899 Other long term (current) drug therapy; Z86.19 Personal history of other infectious and parasitic diseases; Z95.5 Presence of coronary angioplasty implant and graft; Z98.1 Arthrodesis status
CPT/HCPCS: 36415; 70450; 70553; 71046; 71275; 72141; 80048; 80053; 80061; 83735; 83880; 84132; 84439; 84443; 84484; 85025; 85379; 85610; 85730; 93005; 93270; 95819; 96361; 96365; 96366; 96375; 96376; 99285